=== PATIENT | male | born 1990 | race African-American/Black ===

== ENCOUNTER 2018-02-26 23:22 | Emergency (ER) | payer SELFPAY ==
[~2018-02-26] VITALS: Ht 182.9 cm; Wt 90.0 kg
[2018-02-27 02:22] VITALS: BP 120/70
== END 2018-02-27 02:08 | disposition home or self-care (01) ==
LOC: ER 23:22
DX: T59.91XA Toxic effect of unspecified gases, fumes and vapors, accidental (unintentional), initial encounter (principal); S50.812A Abrasion of left forearm, initial encounter; F12.10 Cannabis abuse, uncomplicated; F15.10 Other stimulant abuse, uncomplicated; F16.10 Hallucinogen abuse, uncomplicated; M79.1 Myalgia; W19.XXXA Unspecified fall, initial encounter; Y93.89 Activity, other specified; Y92.89 Other specified places as the place of occurrence of the external cause; Y99.8 Other external cause status
CPT/HCPCS: 99283; X7700

== ENCOUNTER 2018-05-09 21:59 | Emergency (ER) | payer OTHER ==
[~2018-05-09] VITALS: Ht 193 cm; Wt 91.0 kg
[2018-05-09 23:12] VITALS: BP 215/58
== END 2018-05-09 23:13 | disposition home or self-care (01) ==
LOC: ER 21:59
DX: Z02.89 Encounter for other administrative examinations (principal); J45.909 Unspecified asthma, uncomplicated; I10 Essential (primary) hypertension; F17.200 Nicotine dependence, unspecified, uncomplicated
CPT/HCPCS: 99283

== ENCOUNTER 2021-03-14 18:02 | Emergency (ER) | payer OTHER ==
[~2021-03-14] VITALS: Ht 182.9 cm; Wt 102.0 kg
[2021-03-14 19:23] LABS: CHLORIDE 118 mEq/L (98-107)
[2021-03-14 19:30] LABS: BASOPHILS % 0.5 % (0.0-2.0); EOSINOPHILS % 0.7 % (0.0-5.0); HEMATOCRIT. 43.2 % (42.0-52.0); HEMOGLOBIN. 14.6 g/dL (14.0-18.0); LYMPHOCYTES % 22.6 % (20.0-50.0); MEAN CORPUSCULAR HEMOGLOBIN 30.2 pg (28.0-32.0); MEAN CORPUSCULAR VOLUME 89.8 fL (80.0-94.0); MONOCYTES % 8.1 % (2.0-8.0); NEUTROPHILS % 68.1 % (40.0-76.0); RED BLOOD CELL COUNT 4.81 mill/uL (4.7-6.1); RED CELL DISTRIBUTION WIDTH 17.2 % (11.6-14.6)
[2021-03-14 19:41] LABS: ETHANOL BLOOD 295 mg/dL
[2021-03-14 19:59] LABS: MEAN PLATELET VOLUME 8.9 fl (7.4-10.4); PLATELET 253 x1000/uL (130-400)
[2021-03-14 21:30] VITALS: BP 111/68
== END 2021-03-14 21:29 | disposition home or self-care (01) ==
LOC: ER 18:46
DX: T51.91XA Toxic effect of unspecified alcohol, accidental (unintentional), initial encounter (principal); I10 Essential (primary) hypertension; J45.909 Unspecified asthma, uncomplicated; Y92.9 Unspecified place or not applicable
CPT/HCPCS: 36415; 80053; 80307; 80320; 80329; 85025; 93005; 99291; G0480